=== PATIENT | female | born 1990 | race Caucasian/White ===

== ENCOUNTER 2016-09-26 13:03 | Emergency (ER) | payer OTHER ==
[~2016-09-26] VITALS: Ht 157.5 cm; Wt 91.7 kg
[~2016-09-26 13:03] MED LIST: ALBUTEROL; PRENATAL VITS; SULF1TAB12 PO; TRAM50TA94 PO
[2016-09-26 13:33] VITALS: BP 104/68
--- NOTE | 2016-09-26 13:44 | NUR ---
ekg done at 1344. Shown to Dr. Rodrigues
[2016-09-26 14:47] LABS: BASOPHILS # (AUTO) 0.2 K/uL (0.00-0.22); BASOPHILS % (AUTO) 1.6 % (0.0-2.0); EOSINOPHILS # (AUTO) 0.3 K/uL (0-0.4); EOSINOPHILS % (AUTO) 2.5 % (0.0-4.0); HEMOGLOBIN 14.2 g/dL (12.0-16.0); LYMPHOCYTES # (AUTO) 2.1 K/uL (2.5-16.5); LYMPHOCYTES % (AUTO) 15.4 % (20.5-51.1); MEAN CORPUSCULAR HEMOGLOBIN 29 pg (27-31); MEAN CORPUSCULAR HGB CONC 34 g/dL (33-37); MEAN CORPUSCULAR VOLUME 84 fL (80-94); MONOCYTES # (AUTO) 0.9 K/uL (0.8-1.0); MONOCYTES % (AUTO) 6.6 % (1.7-9.3); NEUTROPHILS # (AUTO) 10.1 K/uL (1.8-7.7); NEUTROPHILS % (AUTO) 73.9 % (42.2-75.2); PLATELET COUNT (AUTO) 298 K/uL (140-450); RED BLOOD CELL COUNT(AUTO) 4.99 MIL/uL (4.20-5.40); RED CELL DISTRIBUTION WIDTH 12.4 % (11.6-13.7); WHITE BLOOD COUNT (AUTO) 13.6 K/uL (4.8-10.8)
[2016-09-26 14:57] LABS: ANION GAP 14.1 (8-16); CALCIUM 8.5 mg/dL (8.5-10.1); CARBON DIOXIDE 24.8 mmol/L (21-32); POTASSIUM 3.9 mmol/L (3.5-5.1)
[2016-09-26 15:02] LABS: ALBUMIN 3.5 g/dL (3.4-5.0); TOTAL BILIRUBIN 0.2 mg/dL (0.0-1.0); TOTAL PROTEIN, SERUM 7.8 g/dL (6.4-8.2)
[2016-09-26 16:12] LABS: APPEARANCE,URINE CLEAR (CLEAR); BILIRUBIN,URINE NEGATIVE (NEGATIVE); BLOOD, URINE 1+ (NEGATIVE); COLOR,URINE YELLOW (YELLOW); LEUKOCYTE ESTERASE ,URINE NEGATIVE (NEGATIVE); NITRITE, URINE NEGATIVE (NEGATIVE); PH,URINE 5.5 (5.0-9.0); PROTEIN,URINE NEGATIVE (NEGATIVE); UGLUCOSE NEGATIVE (NEGATIVE); UROBILINOGEN,URINE 0.2 EU/dL (0.2 - 1)
[2016-09-26 16:14] LABS: RBC,URINE 11-20 (MOD) /HPF (0-5); WBC,URINE 0-5 (RARE) /HPF (0-5)
[2016-09-26 16:15] LABS: BACTERIA,URINE 1-9 (FEW) /HPF (None Seen); SQUAMOUS EPITHELIAL CELL,UR 4-10 (MOD) /LPF (0-3 (FEW))
--- NOTE | 2016-09-26 19:26 | NUR ---
PT TAKEN TO BED 7
--- NOTE | 2016-09-26 19:31 | NUR ---
26 Y/O F W/C/O CHEST PRESSURE X 2 MTHS ON AND OFF. VSS, NO S/S OF DSITRESS NOTED AT THE MOMENT. 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
--- NOTE | 2016-09-26 20:09 | NUR ---
Dr. Vicente evaluating patient at bedside.
[2016-09-26] MEDS ORDERED: KETOROLAC 60 MG/2 ML VIAL IM ONE (20:10)
[2016-09-26 20:31] VITALS: BP 111/60
--- NOTE | 2016-09-26 20:32 | NUR ---
Patient discharged with v/s stable. Written and verbal after care instructions given and explained. Patient alert, oriented and verbalized understanding of instructions. Ambulatory with steady gait. All questions addressed prior to discharge. ID band removed. Patient advised to follow up with PMD. Rx of NORCO 5MG, PREDNISON 20MG, MORTIN 800MG given. Patient educated on indication of medication including possible reaction and side effects. Opportunity to ask questions provided and answered.
== END 2016-09-26 20:32 | disposition home or self-care (01) ==
LOC: MED 13:03
DX: R07.89 Other chest pain (principal); R05 Cough; J45.909 Unspecified asthma, uncomplicated; Z79.899 Other long term (current) drug therapy
CPT/HCPCS: 36415; 80053; 81001; 81025; 84484; 85025; 85379; 96372; 99285; J1885; 93005

== ENCOUNTER 2017-11-19 10:04 | Emergency (ER) | payer OTHER ==
[~2017-11-19] VITALS: Ht 154.9 cm; Wt 95.3 kg
[~2017-11-19 10:04] MED LIST changes: +TRAM50TA1 PO; -TRAM50TA94 PO
[2017-11-19 10:20] VITALS: BP 113/71
--- NOTE | 2017-11-19 10:25 | NUR ---
PT AMBULATED TO BED 8.
--- NOTE | 2017-11-19 10:26 | NUR ---
27/F BIB SELF C/O MID BACK PAIN X 2 YESTERDAY WHILE AT WORK. DENIES DYSURIA, NORMAL BM THIS AM. DENIES N/V/D; SKIN IS PINK/WARM/DRY; AAOX4 WITH EVEN AND STEADY GAIT; LUNGS CLEAR BL; HR EVEN AND REGULAR; PATIENT STATES PAIN OF 10/10 AT THIS TIME; VSS; PATIENT POSITIONED FOR COMFORT; HOB ELEVATED; BEDRAILS UP X2; BED DOWN. ER MD MADE AWARE OF PT STATUS.
--- NOTE | 2017-11-19 10:32 | NUR ---
Patient being evaluated by physician at bedside.
--- NOTE | 2017-11-19 10:44 | NUR ---
Patient being evaluated by DR FERREIRA at bedside.
[2017-11-19] MEDS ORDERED: LIDOCAINE 2% 1000 MG/50 ML VIAL INJ ONE (10:50)
--- NOTE | 2017-11-19 11:35 | NUR ---
Patient being reevaluated by DR FERREIRA at bedside.
[2017-11-19 11:47] VITALS: BP 100/61
== END 2017-11-19 11:47 | disposition home or self-care (01) ==
LOC: MED 10:04
DX: S29.012A Strain of muscle and tendon of back wall of thorax, initial encounter (principal); J45.909 Unspecified asthma, uncomplicated; Z79.899 Other long term (current) drug therapy; X50.1XXA Overexertion from prolonged static or awkward postures, initial encounter; Y93.89 Activity, other specified; Y92.89 Other specified places as the place of occurrence of the external cause; Y99.8 Other external cause status
CPT/HCPCS: 20552; 99284; J2001

== ENCOUNTER 2018-09-19 18:03 | Emergency (ER) | payer OTHER ==
[~2018-09-19] VITALS: Ht 154.9 cm; Wt 77.1 kg
[2018-09-19 18:05] VITALS: BP 89/58
--- NOTE | 2018-09-19 18:05 | NUR ---
PATIENT AMBULATED TO ER BED 8.
--- NOTE | 2018-09-19 18:15 | NUR ---
PATIENT PRESENTS TO ED WITH C/O STERNAL CHEST PAIN X2 HOURS. DENIES N/V; HR EVEN AND REGULAR; PT DENIES ANY SOB, OR COUGH AT THIS TIME; PATIENT STATES PRESSURE CHEST PAIN OF 9/10; PATIENT POSITIONED FOR COMFORT; BEDRAILS UP X1; ER MD TO EVALUATE PT.
[2018-09-19] MEDS ORDERED: KETOROLAC 60 MG/2 ML VIAL IM ONE (18:20)
--- NOTE | 2018-09-19 18:28 | NUR ---
WINCH RUNNER AT BEDSIDE.
[2018-09-19 18:49] VITALS: BP 89/58
== END 2018-09-19 18:49 | disposition home or self-care (01) ==
LOC: MED 18:03
DX: R07.89 Other chest pain (principal); F41.9 Anxiety disorder, unspecified; J45.909 Unspecified asthma, uncomplicated; Z79.899 Other long term (current) drug therapy
CPT/HCPCS: 71045; 93005; 96372; 99283; J1885; Q0092

== ENCOUNTER 2018-12-29 18:04 | Emergency (ER) | payer OTHER ==
[~2018-12-29] VITALS: Ht 154.9 cm; Wt 80.8 kg
[2018-12-29 18:28] VITALS: BP 131/82
--- NOTE | 2018-12-29 18:37 | NUR ---
CAME HERE FOR CHECKING PREGNACY TEST. INTERMITENT ABDOMINAL PAIN X 2 DAYS. PT CAN'T RECALL LMP. DENIES N/V/D. DENIES PAIN AT THIS TIME. PATIENT POSITIONED FOR COMFORT; HOB ELEVATED; BEDRAILS UP X1; BED DOWN. ER MD MADE AWARE OF PT STATUS.
[2018-12-29 19:13] LABS: BASOPHILS # (AUTO) 0.1 K/uL (0.00-0.22); BASOPHILS % (AUTO) 0.7 % (0.0-2.0); EOSINOPHILS # (AUTO) 0.1 K/uL (0-0.4); HEMATOCRIT 40.1 % (36-48); HEMOGLOBIN 13.2 g/dL (12.0-16.0); LYMPHOCYTES # (AUTO) 3.5 K/uL (2.5-16.5); LYMPHOCYTES % (AUTO) 25.4 % (20.5-51.1); MEAN CORPUSCULAR HEMOGLOBIN 29 pg (27-31); MEAN CORPUSCULAR HGB CONC 33 g/dL (33-37); MEAN CORPUSCULAR VOLUME 88.7 fL (80-94); MONOCYTES # (AUTO) 0.9 K/uL (0.8-1.0); MONOCYTES % (AUTO) 6.8 % (1.7-9.3); NEUTROPHILS # (AUTO) 9.2 K/uL (1.8-7.7); NEUTROPHILS % (AUTO) 66.1 % (42.2-75.2); PLATELET COUNT (AUTO) 306 K/uL (140-450); RED BLOOD CELL COUNT(AUTO) 4.52 MIL/uL (4.20-5.40); RED CELL DISTRIBUTION WIDTH 13.2 % (11.6-13.7); WHITE BLOOD COUNT (AUTO) 13.8 K/uL (4.8-10.8)
--- NOTE | 2018-12-29 19:14 | NUR ---
Pt report given to NANCY BOUCHER. Transfer of care at this time.
[2018-12-29 19:38] LABS: ANION GAP 13.6 (8-16); CARBON DIOXIDE 25.8 mmol/L (21-32); CREATININE 0.6 mg/dL (0.6-1.3); POTASSIUM 3.4 mmol/L (3.5-5.1)
[2018-12-29 19:44] LABS: ALBUMIN 3.5 g/dL (3.4-5.0); TOTAL BILIRUBIN 0.3 mg/dL (0.0-1.0)
--- NOTE | 2018-12-29 19:51 | NUR ---
Patient discharged with v/s stable. Written and verbal after care instructions given and explained. Patient alert, oriented and verbalized understanding of instructions. Ambulatory with to home. All questions addressed prior to discharge. ID band removed. Patient advised to follow up with PMD. Rx of MACROBID 100 MG given. Patient educated on indication of medication including possible reaction and side effects. Opportunity to ask questions provided and answered.
[2018-12-29 19:52] VITALS: BP 131/82
== END 2018-12-29 19:52 | disposition home or self-care (01) ==
LOC: MED 18:04
DX: N39.0 Urinary tract infection, site not specified (principal); J45.909 Unspecified asthma, uncomplicated; Z79.2 Long term (current) use of antibiotics; Z79.899 Other long term (current) drug therapy
CPT/HCPCS: 36415; 80053; 81002; 81025; 84702; 85025; 99283

== ENCOUNTER 2019-04-08 14:08 | Emergency (ER) | payer OTHER ==
[~2019-04-08] VITALS: Ht 154.9 cm; Wt 79.8 kg
[2019-04-08 14:15] VITALS: BP 119/68
--- NOTE | 2019-04-08 14:19 | NUR ---
AMB TO BED 01 WITH STEADY GAIT
--- NOTE | 2019-04-08 14:22 | NUR ---
BIB SELF C/O NAUSEA & INTERMITENT RIGHT MID ABDOMINAL PAIN X 1 WEEK. DENIES PAIN AT THIS TIME. TESTED POSITIVE TODAY ON HOME URINE TEST. LMP 2-3 MONTHS AGO? PT UNSURE HAS BEEN ON CONTROL NANCY CONTROL PILLS HX- ANXIETY
--- NOTE | 2019-04-08 14:45 | NUR ---
LAB AT BEDSIDE.
--- NOTE | 2019-04-08 14:45 | NUR ---
PT CAN'T PROVIDE URINE AT THIS TIME.
[2019-04-08 15:01] LABS: BASOPHILS # (AUTO) 0.1 K/uL (0.00-0.22); BASOPHILS % (AUTO) 0.5 % (0.0-2.0); EOSINOPHILS # (AUTO) 0.1 K/uL (0-0.4); HEMATOCRIT 40.4 % (36-48); HEMOGLOBIN 13.2 g/dL (12.0-16.0); LYMPHOCYTES # (AUTO) 3.3 K/uL (2.5-16.5); MEAN CORPUSCULAR HEMOGLOBIN 30 pg (27-31); MEAN CORPUSCULAR HGB CONC 33 g/dL (33-37); MONOCYTES # (AUTO) 0.9 K/uL (0.8-1.0); MONOCYTES % (AUTO) 6.4 % (1.7-9.3); NEUTROPHILS # (AUTO) 9.8 K/uL (1.8-7.7); NEUTROPHILS % (AUTO) 69.1 % (42.2-75.2); PLATELET COUNT (AUTO) 324 K/uL (140-450); RED BLOOD CELL COUNT(AUTO) 4.49 MIL/uL (4.20-5.40); RED CELL DISTRIBUTION WIDTH 12.7 % (11.6-13.7); WHITE BLOOD COUNT (AUTO) 14.2 K/uL (4.8-10.8)
[2019-04-08 15:27] LABS: APPEARANCE,URINE HAZY (CLEAR); BILIRUBIN,URINE NEGATIVE (NEGATIVE); BLOOD, URINE TRACE-I (NEGATIVE); COLOR,URINE YELLOW (YELLOW); LEUKOCYTE ESTERASE ,URINE TRACE (NEGATIVE); NITRITE, URINE NEGATIVE (NEGATIVE); UGLUCOSE NEGATIVE (NEGATIVE)
[2019-04-08 15:59] LABS: RBC,URINE 0-5 /HPF (0-5)
[2019-04-08 17:11] VITALS: BP 107/50
== END 2019-04-08 17:10 | disposition home or self-care (01) ==
LOC: MED 14:08
DX: R10.30 Lower abdominal pain, unspecified (principal); J06.9 Acute upper respiratory infection, unspecified; Z79.899 Other long term (current) drug therapy
CPT/HCPCS: 36415; 76817; 81001; 81025; 84702; 85025; 86900; 86901; 87086; 99284; Q0092

== ENCOUNTER 2022-06-04 08:00 | Emergency (ER) | payer OTHER ==
[~2022-06-04] VITALS: Ht 154.9 cm; Wt 79.4 kg
[~2022-06-04 08:00] MED LIST changes: +SULF-954 PO; -SULF1TAB12 PO; +TRAM-748 PO; -TRAM50TA1 PO
[2022-06-04 08:10] VITALS: BP 99/65
--- NOTE | 2022-06-04 08:26 | NUR ---
Dr. Castillo evaluating patient at bedside.
--- NOTE | 2022-06-04 08:28 | NUR ---
X-Ray at bedside.
[2022-06-04] MEDS ORDERED: ACETAMINOPHEN 325 MG TAB PO ONE (08:30)
--- NOTE | 2022-06-04 08:44 | NUR ---
31 y/o female bib self with c/o right 4th toe pain x yesterday. Per patient, she hit her toe on the table. Patient is able to move toe with discomfort. Patient is noted with bruising thorugh out entire toe. Denies taking any medication prior to arrival. Medical History: Denies NKDA
[2022-06-04] MEDS ORDERED: NAPR-1704 PO (09:08)
--- NOTE | 2022-06-04 09:41 | NUR ---
PT'S RIGHT FOOT 3RD AND 4TH DIGITS VY TAPED TOGETHER AND THEN PLACED INTO ORTHO SHOE. +CMS
[2022-06-04 09:47] VITALS: BP 101/65
--- NOTE | 2022-06-04 09:47 | NUR ---
Patient discharged with v/s stable. Written and verbal after care instructions given. Patient alert, oriented and verbalized understanding of instructions. Ambulatory with steady gait. All questions addressed prior to discharge. ID band removed. Patient advised to follow up with PMD. Rx of Naproxen given. Opportunity to ask questions provided and answered.
--- NOTE | 2022-06-04 09:50 | NUR ---
The patient's care was reviewed and supervised by Christine Montana RN.
== END 2022-06-04 08:15 | disposition home or self-care (01) ==
LOC: MED 08:00
DX: S92.421A Displaced fracture of distal phalanx of right great toe, initial encounter for closed fracture (principal); Z79.899 Other long term (current) drug therapy; W01.0XXA Fall on same level from slipping, tripping and stumbling without subsequent striking against object, initial encounter; Y93.89 Activity, other specified; Y92.89 Other specified places as the place of occurrence of the external cause; Y99.8 Other external cause status
CPT/HCPCS: 29515; 73660; 99283

== ENCOUNTER 2022-06-21 13:52 | Emergency (ER) | payer OTHER ==
[~2022-06-21] VITALS: Ht 154.9 cm; Wt 80.7 kg
[~2022-06-21 13:52] MED LIST changes: +NAPR-1704 PO
[2022-06-21 14:19] VITALS: BP 135/74
[2022-06-21 14:51] LABS: BILIRUBIN,URINE NEGATIVE (NEGATIVE); BLOOD, URINE 1+ (NEGATIVE); LEUKOCYTE ESTERASE ,URINE 3+ (NEGATIVE); NITRITE, URINE NEGATIVE (NEGATIVE); UGLUCOSE NEGATIVE (NEGATIVE)
[2022-06-21 15:00] LABS: APPEARANCE,URINE CLOUDY (CLEAR); COLOR,URINE YELLOW (YELLOW)
--- NOTE | 2022-06-21 15:30 | NUR ---
MD at bedside to evaluate the patient
[2022-06-21] MEDS ORDERED: KETOROLAC 30 MG/ML VIAL IM ONE (15:45)
--- NOTE | 2022-06-21 16:00 | NUR ---
Bender catheter fr.16/10ml inserted. tolerated well with urine output of 500 cc drained, clear, yellow urine. no complains of pain at this time.
--- NOTE | 2022-06-21 17:00 | NUR ---
Patient discharged with v/s stable. Written and verbal after care instructions given and explained. Patient verbalized understanding. Ambulatory with steady gait. All questions addressed prior to discharge. Advised to follow up with PMD.
--- NOTE | 2022-06-24 14:15 | NUR ---
LATE ENTRY. RECEIVED POSITIVE URINE CULTURE. FORM GIVEN TO DR SUAZO, TREATMENT APPROPRIATE. FORM PLACED IN BINDER.
== END 2022-06-21 16:56 | disposition home or self-care (01) ==
LOC: MED 13:52
DX: N39.0 Urinary tract infection, site not specified (principal); R33.9 Retention of urine, unspecified; Z79.899 Other long term (current) drug therapy
CPT/HCPCS: 51702; 81001; 81025; 87086; 96372; 99284; J1885; 87186

== ENCOUNTER 2022-08-13 19:24 | Emergency (ER) | payer OTHER ==
[~2022-08-13] VITALS: Ht 154.9 cm; Wt 79.4 kg
[2022-08-13 19:30] VITALS: BP 104/57
--- NOTE | 2022-08-13 19:33 | NUR ---
TO LOBBY A/W BED AMBULATORY
--- NOTE | 2022-08-13 19:45 | NUR ---
URINE WALKED TO LAB.
--- NOTE | 2022-08-13 20:10 | NUR ---
Patient taken to bed 11.
[2022-08-13 20:25] LABS: APPEARANCE,URINE HAZY (CLEAR); BILIRUBIN,URINE NEGATIVE (NEGATIVE); BLOOD, URINE 2+ (NEGATIVE); COLOR,URINE YELLOW (YELLOW); LEUKOCYTE ESTERASE ,URINE TRACE (NEGATIVE); NITRITE, URINE NEGATIVE (NEGATIVE); UGLUCOSE NEGATIVE (NEGATIVE)
[2022-08-13 20:44] LABS: RBC,URINE 0-5 /HPF (0-5)
--- NOTE | 2022-08-13 21:04 | NUR ---
Dr. Simon examining patient.
[2022-08-13] MEDS ORDERED: IBUP-2213 PO (21:11)
--- NOTE | 2022-08-13 21:22 | NUR ---
pt left without discharge paperwork.
== END 2022-08-13 21:22 | disposition home or self-care (01) ==
LOC: MED 19:24
DX: N93.9 Abnormal uterine and vaginal bleeding, unspecified (principal); R10.30 Lower abdominal pain, unspecified; M54.50 Low back pain, unspecified
CPT/HCPCS: 81001; 81025; 99283

== ENCOUNTER 2023-07-26 08:04 | Emergency (ER) | payer OTHER ==
[~2023-07-26] VITALS: Ht 154.9 cm; Wt 86.6 kg
[~2023-07-26 08:04] MED LIST changes: +IBUP-2213 PO
[2023-07-26 08:38] VITALS: BP 112/72; PULSE 76; RESP 19; TEMP 98; O2SAT 99
[2023-07-26] MEDS: NACL 0.9% 1,000 ML IV ONE (11:31)
[2023-07-26 11:49] LABS: BASOPHILS # (AUTO) 0.1 K/uL (0.00-0.22); BASOPHILS % (AUTO) 0.5 % (0.0-2.0); EOSINOPHILS # (AUTO) 0.1 K/uL (0-0.4); EOSINOPHILS % (AUTO) 0.4 % (0.0-4.0); HEMATOCRIT 41.2 % (36-48); HEMOGLOBIN 13.8 g/dL (12.0-16.0); LYMPHOCYTES # (AUTO) 3.1 K/uL (2.5-16.5); LYMPHOCYTES % (AUTO) 22.7 % (20.5-51.1); MEAN CORPUSCULAR HEMOGLOBIN 29 pg (27-31); MEAN CORPUSCULAR HGB CONC 34 g/dL (33-37); MONOCYTES # (AUTO) 0.7 K/uL (0.8-1.0); MONOCYTES % (AUTO) 4.9 % (1.7-9.3); NEUTROPHILS # (AUTO) 9.7 K/uL (1.8-7.7); NEUTROPHILS % (AUTO) 71.5 % (42.2-75.2); PLATELET COUNT (AUTO) 310 K/uL (140-450); RED BLOOD CELL COUNT(AUTO) 4.74 MIL/uL (4.20-5.40); RED CELL DISTRIBUTION WIDTH 13.8 % (11.6-13.7); WHITE BLOOD COUNT (AUTO) 13.6 K/uL (4.8-10.8)
[2023-07-26 12:05] LABS: ANION GAP 13.3 (8-16); CALCIUM 8.8 mg/dL (8.5-10.1); CARBON DIOXIDE 25.4 mmol/L (21-32); CREATININE 0.6 mg/dL (0.6-1.3); POTASSIUM 3.7 mmol/L (3.5-5.1)
[2023-07-26 13:35] VITALS: BP 96/49; PULSE 70; RESP 18; TEMP 98; O2SAT 98
== END 2023-07-26 13:30 | disposition home or self-care (01) ==
LOC: MED 08:04
DX: R55 Syncope and collapse (principal); E86.0 Dehydration; Z79.899 Other long term (current) drug therapy
CPT/HCPCS: 36415; 80048; 81025; 82948; 85025; 85379; 93005; 96360; 99284; J7030